=== PATIENT | male | born 1960 | race Caucasian/White ===

== ENCOUNTER 2022-06-17 14:34 | Emergency (ER) | payer OTHER ==
[~2022-06-17] VITALS: Ht 182.9 cm; Wt 90.7 kg
--- NOTE | 2022-06-17 15:00 | NUR ---
Sleeping soundly. Respirations even and unlabored
--- NOTE | 2022-06-17 18:00 | NUR ---
Status quo. NO obvious distress
--- NOTE | 2022-06-17 19:44 | NUR ---
PT IS SLEEPING, DROWSY WHEN AWAKEN. CONNECTED TO MONITOR. SAFETY PRECAUTIONS IN PLACE. SITTER WITHIN SIGHT. WILL CONTINUE TO MONITOR.
--- NOTE | 2022-06-18 07:53 | NUR ---
breakfast provided to patient. awake and alert.
[2022-06-18 08:12] VITALS: BP 129/61
--- NOTE | 2022-06-18 08:12 | NUR ---
Patient given written and verbal discharge instructions. Patient verbalizes understanding of instructions. Patient is ambulatory with steady gait. Refuses offer of jail placement. Patient given list of available shelters in surrounding area.
[2022-06-19] MEDS ORDERED: LURA80TA PO (02:53)
[2022-06-19] MEDS ORDERED: LORA-259 PO (02:53)
[2022-06-19] MEDS ORDERED: ACET-73 PO (02:53)
[2022-06-19] MEDS ORDERED: FLUV100T3 PO (02:53)
[2022-06-19] MEDS ORDERED: ZOLP5TAB8 PO (02:53)
[2022-06-19] MEDS ORDERED: SITA100T PO (02:53)
[2022-06-19] MEDS ORDERED: TRAM50TA2 PO (03:02)
[2022-06-19] MEDS ORDERED: LOVA20TA2 PO (03:02)
[2022-06-19] MEDS ORDERED: CARI350T27 PO (03:02)
[2022-06-19] MEDS ORDERED: METF-442 PO (03:02)
[2022-06-21] MEDS ORDERED: THIA100T70 PO (17:53)
[2022-06-21] MEDS ORDERED: ASPI-1169 PO (17:53)
[2022-06-21] MEDS ORDERED: AMLO-213 PO (17:53)
== END 2022-06-18 08:12 | disposition home or self-care (01) ==
LOC: ER 18:50 → EDBD 18:50 → ER 06-18 08:12
DX: F10.129 Alcohol abuse with intoxication, unspecified (principal); Z59.00 Homelessness unspecified; Y90.9 Presence of alcohol in blood, level not specified

== ENCOUNTER 2022-06-18 17:45 | Inpatient (IN) | payer OTHER ==
[~2022-06-18] VITALS: Ht 188 cm; Wt 87.5 kg
[2022-06-18] MEDS ORDERED: THIAMINE HCL 100 MG TABLET ONE (20:00)
[2022-06-18] MEDS ORDERED: THIAMINE HCL 100 MG TABLET PO ONE (20:00)
[2022-06-18 20:15] LABS: BASOPHILS % (AUTO) 0.2 % (0.0-2.0); EOSINOPHILS % (AUTO) 0.3 % (0.0-6.0); HEMATOCRIT 41 % (39-51); HEMOGLOBIN 14.6 g/dL (13.5-17.5); LYMPHOCYTES # (AUTO) 1.3 K/uL (0.8-4.8); LYMPHOCYTES % (AUTO) 12.7 % (20.0-44.0); MEAN CORPUSCULAR HGB CONC 36 g/dl (31.0-36.0); MEAN CORPUSCULAR VOLUME 86 fL (80-96); MONOCYTES # (AUTO) 1.2 K/uL (0.1-1.30); MONOCYTES % (AUTO) 12.3 % (2.0-12.0); NEUTROPHILS # (AUTO) 7.4 K/uL (1.8-8.9); NEUTROPHILS % (AUTO) 74.5 % (43.0-81.0); PLATELET COUNT (AUTO) 144 K/uL (150-450); RED BLOOD CELL COUNT(AUTO) 4.77 MIL/uL (4.5-6.0); WHITE BLOOD COUNT (AUTO) 9.9 K/uL (4.3-11.0)
[2022-06-18 20:24] LABS: CALCIUM, SERUM 8.6 mg/dL (8.5-10.1)
[2022-06-18 20:25] LABS: ALCOHOL, BLOOD < 3 mg/dL (0-0)
--- NOTE | 2022-06-18 20:27 | NUR ---
2.3 POTASSIUM, MD AWARE
[2022-06-18 20:30] LABS: ALBUMIN 3.2 g/dL (3.4-5.0); BILIRUBIN,DIRECT 0.3 mg/dL (0.0-0.2); TOTAL PROTEIN, SERUM 6.2 g/dL (6.4-8.2)
[2022-06-18 20:31] LABS: POTASSIUM 2.3 mmol/L (3.5-5.1)
[2022-06-18] MEDS ORDERED: POTASSIUM CHLORIDE 20 MEQ TAB.PRT.SR PO ONE ×2 (21:00)
[2022-06-18] MEDS ORDERED: POTASSIUM CL. PREMIX PERIPHER. 50 ML ONE ×3 (21:00→23:17)
[2022-06-18] MEDS: POTASSIUM CL. PREMIX PERIPHER. 50 ML IV SCH ×3 (21:20→23:31)
--- NOTE | 2022-06-18 21:22 | NUR ---
IV LINE ESTABLISHED, RAC20G
[2022-06-18] MEDS ORDERED: Z GUARD REMEDY 4 OZ OINT TP PRN (22:00)
[2022-06-18] MEDS ORDERED: ZOLPIDEM TARTRATE 5 MG TABLET PO PRN (22:00)
[2022-06-18] MEDS ORDERED: MAG HYDROX/AL HYDROX/SIMETH 30 ML UDC PO PRN (22:00)
[2022-06-18] MEDS ORDERED: ACETAMINOPHEN 325 MG TABLET PO PRN (22:00)
[2022-06-18] MEDS ORDERED: MAGNESIUM HYDROXIDE 30 ML UDC PO PRN (22:00)
[2022-06-18] MEDS ORDERED: ONDANSETRON HCL/PF 4 MG/2 ML VIAL IVP PRN (22:00)
--- NOTE | 2022-06-18 22:23 | NUR ---
PT IS SLEEPING , EASILY AROUSABLE WITH VERBAL STIMULI. CONNECTED TO MONITOR. WILL CONTINUE TO MONITOR.
[2022-06-18] MEDS ORDERED: Thiamine 100 MG/ML VIAL ONE (23:17)
[2022-06-18] MEDS: Thiamine 100 MG in IV D5W 50 ML IV SCH (23:30)
[2022-06-19] VITALS (8 sets, daily range): BP systolic 140–164; BP diastolic 71–92
[2022-06-19] MEDS ORDERED: POTASSIUM CL. PREMIX PERIPHER. 50 ML ONE (00:25)
[2022-06-19] MEDS: POTASSIUM CL. PREMIX PERIPHER. 50 ML IV SCH (00:36)
--- NOTE | 2022-06-19 01:45 | NUR ---
REPORT GIVEN TO AWA RIOS FOR MANUEL
--- NOTE | 2022-06-19 02:08 | NUR ---
patient transferred to [facility] via acls.
[2022-06-19] MEDS ORDERED: IV PREMIX NS +20MEQ KCL 1 L IV ONE (02:30)
[2022-06-19] MEDS: Potassium Chloride 20 MEQ in IV NS 0.9% 1,000 ML IV PRN ×2 (02:50→13:30)
[2022-06-19] MEDS ORDERED: SITA100T PO (02:53)
[2022-06-19] MEDS ORDERED: LURA80TA PO (02:53)
[2022-06-19] MEDS ORDERED: FLUV100T3 PO (02:53)
[2022-06-19] MEDS ORDERED: ACET-73 PO (02:53)
[2022-06-19] MEDS ORDERED: ZOLP5TAB8 PO (02:53)
[2022-06-19] MEDS ORDERED: LORA-259 PO (02:53)
[2022-06-19] MEDS ORDERED: METF-442 PO (03:02)
[2022-06-19] MEDS ORDERED: TRAM50TA2 PO (03:02)
[2022-06-19] MEDS ORDERED: LOVA20TA2 PO (03:02)
[2022-06-19] MEDS ORDERED: CARI350T27 PO (03:02)
--- NOTE | 2022-06-19 04:32 | NUR ---
CARPENTER LABOR SUPERVISOR NOTE PATIENT TRANSFERRED IN UNIT AT 0157 AM, ACCOMPANIED BY 1 ER PERSONNEL, JAMES FERNÁNDEZ. PATIENT IS VERY LETHARGIC AND SOMNOLENT. NO PUPIL REACTION NOTED BUT CORNEAL REFLEXES THERE. A/OX2, TO NAME AND PLACE. UNABLE TO DO A THOROUGH QUESTIONING D/T PATIENT CONDITION AT THIS TIME. NO S/S OF APPARENT DISTRESS ON ROOM AIR. NO C/O PAIN. PATIENT JUST WANTS WARM BLANKETS. IV ACCESS ON R. AC #20 G-- NOW RUNNING NS WITH 20MEQ KCL @100MLS/HR. NEW ID BAND ON PATIENT. BELONGINGS CHECKED, AND CONTRABAND CONFISCATED-- INCLUDING 1 PACK OF CIGARETTE, SCISSOR, AND SOME VIAL WITH UNKNOWN SUBSTANCE THAT TO WHAT IT LOOKS LIKE CRUSHED PILLS. PATIENT BAG FULL OF MEDICATIONS THAT ALREADY BEEN RECONCILED BY CHARGE NURSE AWA. MULTIPLE SKIN ISSUES NOTED, PICTURES TAKEN AND WOUND CARE CONSULT ORDERED. TELE MONITOR READING SR WITH PAC'S WITH 78 BPM. NEEDS ATTENDED FOR NOW. SAFETY IN PLACE-- X4 RAILS PADDED, IN LOCKED AND LOWEST POSITION, BED ALARM ON. WILL MONITOR FOR NOW AND FOLLOW THROUGH DOCTOR'S ORDERS.
--- NOTE | 2022-06-19 06:39 | NUR ---
SYSTEM INTEGRATION ENGINEER CLOSING PATIENT IN BED WITH EYES CLOSED, EASY TO AROUSE. NO S/S OF APPARENT DISTRESS IN ROOM AIR. NO C/O PAIN AT THIS TIME. TELE MONITOR READING SR WITH 70 BPM. IV NS WITH 20 MEQ KCL RUNNING @100 MLS/HR. SAFETY IN PLACE. WILL ENDORSE TO MORNING SHIFT RN FOR CONTINUITY OF PATIENT CARE.
--- NOTE | 2022-06-19 07:48 | NUR ---
MULTIMEDIA JOURNALIST OPENING NOTES: RECEIVED POATIENT IN BED, AWAKE. EASILY AROUSED WITH STIMULI. NO SOB OR CARDIAC DISTRESS NOTED. ON TERRAZZO GRINDER WITH CURRENT READING SR 74 BPM. IV NS WITH 20 MEQ KCL RUNNING @100 MLS/HR. SAFETY MEASURES MAINTAINED: BED LOCKED AND IN LOWEST POSITION, SIDE RAILS UP X 3, CALL LIGHT IN EASY REACH FOR ASSISTANCE. KEPT RESTED, CLEAN, DRY AND COMFORTABLE.
[2022-06-19 08:21] LABS: BASOPHILS % (AUTO) 0.3 % (0.0-2.0); EOSINOPHILS % (AUTO) 0.6 % (0.0-6.0); HEMATOCRIT 40 % (39-51); LYMPHOCYTES # (AUTO) 0.9 K/uL (0.8-4.8); LYMPHOCYTES % (AUTO) 12.9 % (20.0-44.0); MEAN CORPUSCULAR HGB CONC 35 g/dl (31.0-36.0); MEAN CORPUSCULAR VOLUME 87 fL (80-96); MONOCYTES # (AUTO) 0.9 K/uL (0.1-1.30); MONOCYTES % (AUTO) 13.4 % (2.0-12.0); NEUTROPHILS # (AUTO) 5.1 K/uL (1.8-8.9); NEUTROPHILS % (AUTO) 72.8 % (43.0-81.0); PLATELET COUNT (AUTO) 152 K/uL (150-450); RED BLOOD CELL COUNT(AUTO) 4.62 MIL/uL (4.5-6.0); WHITE BLOOD COUNT (AUTO) 7.1 K/uL (4.3-11.0)
[2022-06-19 08:41] LABS: BILIRUBIN,TOTAL 1.1 mg/dL (0.2-1.0); CALCIUM, SERUM 7.9 mg/dL (8.5-10.1); CREATININE 0.8 mg/dL (0.6-1.3); MAGNESIUM 1.8 mg/dL (1.8-2.4); PHOSPHORUS 3.1 mg/dL (2.5-4.9)
[2022-06-19] MEDS: ASPIRIN 81 MG TAB.CHEW PO SCH (08:46)
[2022-06-19 08:53] LABS: POTASSIUM 2.7 mmol/L (3.5-5.1)
--- NOTE | 2022-06-19 08:53 | NUR ---
RN NOTES: RECEIVED A CALL FROM LABORATORY, POTASSIUM LEVEL 2.7. . DR WOMACK MADE AWARE.
--- NOTE | 2022-06-19 09:16 | NUR ---
SS consult requested over the weekend for ETOH Abuse. SW will follow up at a later time.
--- NOTE | 2022-06-19 09:20 | NUR ---
WOUND CARE CONSULT: PT PRESENTS WITH AREAS OF REDNESS AND DISCOLORATION ON BODY WITH VERY RED RASH TO BUTTOCKS, PRESENT ON ADMISSION. RECOMMENDATIONS MADE FOR SKIN PROTECTION. DISCUSSED WITH NURSING STAFF. MD IN AGREEMENT WITH PLAN OF CARE.
--- NOTE | 2022-06-19 09:21 | NUR ---
RN NOTES: SEEN AND EXAMINED BY SHITAL WOUND CARE NURSE. PT'S BUTTOCKS, NOTED WITH REDNESS APPLIED Z GUARD.
--- NOTE | 2022-06-19 10:08 | NUR ---
RN NOTES: Seen and examined by Dr Landa, with new orders made: 2.7 potassium level relayed to MD, ordered KCl 80mEq PO, MRI of the brain and Dr Colon for consult. Orders noted and carried out.
[2022-06-19] MEDS ORDERED: POTASSIUM CHLORIDE 20 MEQ TAB.PRT.SR PO ONE (11:00)
--- NOTE | 2022-06-19 17:13 | NUR ---
RN NOTES; PATIENT CAME BACK FROM MRI OF THE BRAIN. STABLE.
[2022-06-19] MEDS: CLOTRIMAZOLE 1% 15 GM TUBE TP SCH (17:15)
--- NOTE | 2022-06-19 19:04 | NUR ---
JUNIOR BUSINESS ANALYST CLOSING NOTES: PATIENT IN BED AWAKE AND WATCHING TELEVISION AT THIS TIME, ALERT AND ORIENTED X 3 AND ABLE TO VERBALIZED NEEDS, NO SOB OR CARDIAC DISTRESS NOTED. PATIENT HAS NO EPISODES OF ALCOHOL WITHDRAWAL,PATIENT REMAINED PLEASANT.IV ACCESS ON RIGHT AC GAUGE 20 PATENT AND INTACT AND INFUSING NS WITH 20 20MEQ 1L X 100ML/HOUR. ON EGG TESTER WITH CURRENT READING OF SR 68 BPM. SAFETY PRECAUTIONS MAINTAINED: BED LOCKED AND IN LOWEST POSITION, SIDE RAILS UP X 2. CALL LIGHT IN EASY REACH FOR HELP OR ASSISTANCE. ENDORSED TO LABORER GOLF COURSE FOR CONTINUITY OF CARE.
--- NOTE | 2022-06-19 19:28 | NUR ---
STAFF PHARMACIST HOSPITAL OPENING NOTES: PATIENT IN BED AWAKE AND WATCHING TELEVISION AT THIS TIME, ALERT AND ORIENTED X 3 AND ABLE TO VERBALIZED NEEDS, NO SOB OR CARDIAC DISTRESS NOTED.IV ACCESS ON RIGHT AC GAUGE 20 PATENT AND INTACT AND INFUSING NS WITH 20 20MEQ 1L X 100ML/HOUR. ON PATIENT OBSERVATION ASSISTANT WITH CURRENT READING OF SR 68 BPM. SAFETY PRECAUTIONS MAINTAINED: BED LOCKED AND IN LOWEST POSITION, SIDE RAILS UP X 2. CALL LIGHT IN EASY REACH FOR HELP OR ASSISTANCE. WILL CONTINUE TO MONITOR.
[2022-06-19] MEDS ORDERED: CLONIDINE HCL 0.1 MG TABLET PO ONE (22:30)
--- NOTE | 2022-06-19 22:30 | NUR ---
RN NOTES PT NOTED WITH SBP > 160 GLUE MAKER NOTIFIED RECEIVED NEW ORDER FOR CLONIDINE 0.1MG P.O X1 CARRIED OUT PT TOLERATED WELL..
[2022-06-19] MEDS: Thiamine 100 MG in IV D5W 50 ML IV SCH (22:35)
[2022-06-20] VITALS: BP 140/76
[2022-06-20 04:00] VITALS: BP 141/79
--- NOTE | 2022-06-20 07:05 | NUR ---
TELE CLOSING NOTE PATIENT IN BED AWAKE AND WATCHING TELEVISION AT THIS TIME, ALERT AND ORIENTED X 2-3 AND ABLE TO VERBALIZED NEEDS, NO SOB OR CARDIAC DISTRESS NOTED.IV ACCESS ON RIGHT AC GAUGE 20 PATENT AND INTACT AND INFUSING NS WITH 20 20MEQ 1L X 100ML/HOUR. ON NEONATAL NURSE PRACTITIONER WITH CURRENT READING OF SR 68 BPM. SAFETY PRECAUTIONS MAINTAINED: BED LOCKED AND IN LOWEST POSITION, SIDE RAILS UP X 2. CALL LIGHT IN EASY REACH FOR HELP OR ASSISTANCE. WILL ENDORSE CARE.
--- NOTE | 2022-06-20 07:50 | NUR ---
PRISON TEACHER OPENING NOTE Patient in bed, asleep. A/O x 2-3. On room air, breathing evenly and unlabored. No SOB or s/s of distress noted. IV access on RAC #20 infusing Ns + 20 MEQ KCL at 100 ml/hr. On tele monitoring showing SR, HR 68. Safety precautions in place: bed in low, locked position; siderails up x 2; call light within reach. Will continue to monitor.
[2022-06-20 08:33] VITALS: BP 167/80
[2022-06-20] MEDS: ASPIRIN 81 MG TAB.CHEW PO SCH (08:46)
[2022-06-20] MEDS: THIAMINE HCL 100 MG TABLET PO SCH (08:46)
[2022-06-20] MEDS: CLOTRIMAZOLE 1% 15 GM TUBE TP SCH ×2 (08:56→17:07)
--- NOTE | 2022-06-20 09:30 | NUR ---
RN NOTE Patient's BP is 167/80, patient has no scheduled nor PRN BP medication. Dr. Ross Wilson notified.
[2022-06-20] MEDS: Potassium Chloride 20 MEQ in IV NS 0.9% 1,000 ML IV PRN ×2 (11:53→22:43)
[2022-06-20] MEDS ORDERED: LORAZEPAM 1 MG TABLET PO PRN (15:00)
[2022-06-20] MEDS: AMLODIPINE BESYLATE 10 MG TABLET PO SCH (15:25)
[2022-06-20 16:09] VITALS: BP 157/71
[2022-06-20] MEDS ORDERED: GADOTERATE MEGLUMINE 10 MMOL/20 ML VIAL IV ONE (16:10)
--- NOTE | 2022-06-20 19:35 | NUR ---
WILD ANIMAL CARETAKER CLOSING NOTE Patient in bed, resting. A/O x 2, able to make needs known. Stable on room air, breathing evenly and unlabored. No SOB or s/s of distress noted. IV access on RAC #20 infusing NS + 20 MEQ KCL at 100 ml/hr. All needs attended to. Due meds given. On tele monitoring showing SR, HR on the 60's. Safety precautions maintained: bed in low, locked position; siderails up x 2; call light within reach. Will endorse to hotel night auditor nurse for MANUEL.
[2022-06-20 20:00] VITALS: BP 141/75
[2022-06-20 21:02] VITALS: BP 141/75
--- NOTE | 2022-06-20 22:46 | NUR ---
HEART RATE ABNORMAL Sinus genoveva HR 50's in the Tele monitor, episodes HR dropped to 45 and back up to 55 in seconds. Patient awake, no c/o any discomfort. Tolerating room air, Oxygen sat 97%. Afebrile, verbal A/O x3. Recent laboratory 06/19/22 Potassium level 2.7 No lab today. IVF NS + KCL 20meq infusing. Notified TOWNSHIP CLERK Rip with no new orders at this time.
[2022-06-20] MEDS: FLUVOXAMINE MALEATE 50 MG TABLET PO SCH (23:01)
[2022-06-21] VITALS: BP 153/69
[2022-06-21 00:11] VITALS: BP 153/69
[2022-06-21 04:00] VITALS: BP_SYST 152; BP_SYST 153; BP_DIAS 60; BP_DIAS 79
--- NOTE | 2022-06-21 07:00 | NUR ---
END OF SHIFT REPORT Patient in bed, A/O x3 Forgetful at times. No agitation, no anxiety. Sinus genoveva, Sinus rhythm HR 67. Oxygen sat in high 90's. Ambulate to the bathroom, denies sob. IVF infusing. Fall precaution maintained. No c/o pain. Plan for PT eval.
--- NOTE | 2022-06-21 07:50 | NUR ---
RN Opening Note Received report from RN, pt AOx4, pt able to express his own needs and concerns, needs attended to. Will continue to monitor throughout shift. Pts IV Intact with no signs of infiltration. All safety precautions taken, bed at lowest position, call light and table within reach.
[2022-06-21 08:00] VITALS: BP 149/67
[2022-06-21] MEDS: LINAGLIPTIN 5 MG TABLET PO SCH (08:09)
[2022-06-21] MEDS: ATORVASTATIN 10 MG TABLET PO SCH (08:09)
[2022-06-21] MEDS: ASPIRIN 81 MG TAB.CHEW PO SCH (08:09)
[2022-06-21] MEDS: THIAMINE HCL 100 MG TABLET PO SCH (08:09)
[2022-06-21] MEDS: AMLODIPINE BESYLATE 10 MG TABLET PO SCH (08:10)
[2022-06-21] MEDS: CLOTRIMAZOLE 1% 15 GM TUBE TP SCH ×2 (08:15→18:00)
--- NOTE | 2022-06-21 09:00 | NUR ---
XRay Refusal Pt refused Back X-Ray, states he is not having back pain. X-Ray tech at bedside
--- NOTE | 2022-06-21 09:40 | NUR ---
SS consult: SS Consult requested for homelessness & alcohol use. The pt. is a 62-year-old male patient who was admitted to [facility] due to Hypokalemia, & generalized weakness per EMR. Upon SS consult, the pt. is Alert & Oriented x 4 and makes good eye contact. The pt. appears disheveled with depressed mood & flat affect. Pt. denies SI/HI and denies current hallucinations. SW explored pt.s living situation. Patient states he is currently experiencing homelessness for about a week as he left the sober living he was staying at. SW explored pt.s mental health Hx. and pt. states he has been diagnosed with Schizophrenia in the past and is currently not on any medication. SW explored pt.s drug & ETOH use. Pt. denies any drug use and states he uses alcohol not to often. However, per EMR, the pt. has HX. of heavy alcohol intoxication. Pt. states he is able to ambulate but is very weak at times and could use some help with some ADLs. SW explored pt.s support system. Pt. states he has no support system. Pt. reports she receives SSI. Per Chio PARRA the PT is recommending SNF placement. Plan: SW provided pt. with addiction resources and pt. refused them. SW also provided pt. with homeless resources to detention, food martinez, showers etc. and pt. accepted resources. Pt. signed homeless waiver and it was placed in the pt.s chart. Pt. is agreeable to SNF placement at this time. Year-round shelters: [facility] [address] [place], [place] [phone] ; [facility] [address] [place] [address]; [facility] [id number] [facility]. [facility] [address] Hygiene: [facility]: [address] [place] ; [facility] [address] [facility] ; [facility] [address] . Food Resources: [facility]- [address] [place]; Meet Each Need with Dignity (MEND) [address] [facility]; [facility] [address] [facility]; [facility] [address] [facility]. Mental Health resources provided: [facility] [address] [place] [address] ; [facility] [address] [facility] [address], [place], [place] [id number] ; [facility] [address] [place] [phone] ; [facility] [address] [place], [place] [address] Healthcare Clinics: [facility] [address] [facility], [address] [place]. [place] ; [facility] [address] [facility] [address] [place] [address]; [facility] [address] [facility]. [place] [phone] Counseling--Outpatient [facility] [address] [facility], [address] [place], [place] [id number] (Specializes in in-depth psychotherapy for emotional distress: anxiety, depression, interpersonal conflicts, life transitions, childhood abuse) [facility] [address] [place], [place] [phone] (Assist with solving problem marital difficulties, separation & divorce, aging parents, & grief, chronic & terminal illness) [facility] [address] [place] [address] (Deal with loss & grief, anxiety, marital difficulties) Homebound/Mental Health Services [address] [facility], [address] [place], [place] [address] (Provide in-home mental services to people who are incapable of leaving their homes) [facility] of [facility] Elderly Senior Service/Resource Center [address] [place] [address] [facility] [address] [place] [address] PSYCHIATRIC OUTPATIENT SERVICES [facility] Partial Hospitalization and Intensive Outpatient Program (Managed Care and [place] Only)[address] [facility] [phone] [facility] Partial Hospitalization and Outpatient [address] [place], [place] [phone] [facility] Mental Health [place] [id number] [address] [place], [place] [phone] [facility] Partial Hospitalization and Outpatient [id number] [facility], [phone] Substance Abuse resources provided included: [facility] Substance Abuse Self-Helpline ([facility]) ; C[facility] -[facility]LP [address] [facility]. [place] [address] ; [facility] [address] [facility] [address] ; [facility] Rehabilitation Program [address] [address] [facility] [address] ; [facility] [address] [phone] ; [facility] [address] [facility] [address] ; [facility] [address] [facility] [address] ; [facility] Substance Abuse Helpline(SAS)-[facility] ; [facility] ; [place] [place]le [place]; [facility] Maybee; [facility] [place]; [facility]; [facility] [place]; [facility] [place]; [facility]; Alcoholics Anonymous -sfv; Nick ; Marijuana Anonymous -SFV; Narcotics Anonymous www.na.org;
[2022-06-21 13:55] LABS: CALCIUM, SERUM 8.2 mg/dL (8.5-10.1); CREATININE 0.8 mg/dL (0.6-1.3); MAGNESIUM 1.6 mg/dL (1.8-2.4); PHOSPHORUS 3.3 mg/dL (2.5-4.9)
[2022-06-21 14:12] LABS: POTASSIUM 2.8 mmol/L (3.5-5.1)
[2022-06-21] MEDS: POTASSIUM CHLORIDE 20 MEQ TAB.PRT.SR PO SCH ×2 (15:22→16:32)
[2022-06-21 16:30] VITALS: BP 136/67
[2022-06-21] MEDS ORDERED: THIA100T70 PO (17:53)
[2022-06-21] MEDS ORDERED: AMLO-213 PO (17:53)
[2022-06-21] MEDS ORDERED: ASPI-1169 PO (17:53)
--- NOTE | 2022-06-21 18:40 | NUR ---
RN Closing Note PT AO x4, no signs of distress, pt able to express his own concerns. Patient was accepted [facility], pending bed availability, patient agrees with plan to discharge to facility. Patient remained stable throughout shift, potassium replacement administered as ordered. No incidents throughout shift, all safety precautions taken.Provided care throughout shift and attended pts needs.
--- NOTE | 2022-06-21 19:00 | NUR ---
RN opening notes Received Pt sitting in bed comfortably. Pt is alert and orientedX4. On room air. NO SOB. No s/s of distress noted. Tele monitor showed SR hr at 88. IV site at L hand @22 is clean, intact and infuising well potassium chloride in Ns @ 100 ml/hr. Pt is able to ambulates with a steady gait. safety precautions is maintained. bed at low position, brakes locked, side rails upX2, hob elevated, and call light is within reach. will continue to monitor.
[2022-06-21 20:00] VITALS: BP 143/73
[2022-06-21] MEDS: FLUVOXAMINE MALEATE 50 MG TABLET PO SCH (21:15)
[2022-06-22] VITALS: BP 145/68
[2022-06-22 04:00] VITALS: BP 141/70
--- NOTE | 2022-06-22 06:30 | NUR ---
RN closing notes Pt is resting in bed comfortably. Pt is alert and orientedX4. On room air. NO SOB. No s/s of distress noted. Tele monitor showed S genoveva hr at 57. IV site at L hand @22 is clean, intact and SL. Vs is stable. Kept Pt clean, dry and comfortable. safety precautions is maintained. bed at low position, brakes locked, side rails upX2, hob elevated, and call light is within reach. Will endorse to am nurse for MANUEL.
--- NOTE | 2022-06-22 07:20 | NUR ---
ms rn received on bed, awake,alert,oriented x4,not in any form of distress, respirations even and unlabored,no sob noted, lungs are clear,abdomen soft,positive bowel sounds,denies pain at this time, all needs attended.
[2022-06-22 08:00] VITALS: BP 157/89
[2022-06-22] MEDS: THIAMINE HCL 100 MG TABLET PO SCH (09:06)
[2022-06-22] MEDS: ASPIRIN 81 MG TAB.CHEW PO SCH (09:06)
[2022-06-22] MEDS: AMLODIPINE BESYLATE 10 MG TABLET PO SCH (09:06)
[2022-06-22] MEDS: ATORVASTATIN 10 MG TABLET PO SCH (09:06)
[2022-06-22] MEDS: LINAGLIPTIN 5 MG TABLET PO SCH (09:06)
--- NOTE | 2022-06-22 09:08 | NUR ---
ms randall breakfast served,due meds given,tolerated well.
[2022-06-22] MEDS: CLOTRIMAZOLE 1% 15 GM TUBE TP SCH ×2 (09:12→17:29)
--- NOTE | 2022-06-22 18:20 | NUR ---
ms rn patient on bed, no distress noted, still on d/c planning at this time, will endorse to night monitor for edil.
--- NOTE | 2022-06-22 18:34 | NUR ---
RN CLOSING NOTE, PT IS AWAKE, A/O X4. NO SOB OR RESPIRATORY DISTRESS NOTED. STABLE ON RA O2 SAT AT 100%. TELE UNIT READING NORMAL SINUS RHYTHM AT 56 BPM. NO COMPLAINTS OF PAIN AT THIS TIME. IV LEFT HAND 20 G INTACT AND PATENT. SAFETY MEASURES IN PLACE: BED LOCKED, BED IN LOWEST POSITION, SIDE RAILS UP X2, CALL LIGHT WITHIN REACH. WILL ENDORSE TO REGULATOR ASSEMBLER NURSE FOR MANUEL.
--- NOTE | 2022-06-22 19:30 | NUR ---
RN NOTES RECEIVED PT IN BED, ASLEEP, AWAKENS TO VERBAL STIMULI. AOx4. ON RA AND TOLERATING WELL. NO DISTRESS NOTED. WILL CONTINUE PLAN OF CARE.
[2022-06-22 20:51] VITALS: BP 125/56
[2022-06-22] MEDS: Potassium Chloride 20 MEQ in IV NS 0.9% 1,000 ML IV PRN (22:26)
[2022-06-22] MEDS: FLUVOXAMINE MALEATE 50 MG TABLET PO SCH (22:26)
[2022-06-23 00:45] VITALS: BP 124/76
[2022-06-23 04:03] VITALS: BP 131/75
--- NOTE | 2022-06-23 06:52 | NUR ---
RN CLOSING NOTES PT IN BED, AWAKE, WATCHING TV. AOx4, ABLE TO MAKE NEEDS KNOWN. ON RA AND TOLERATING WELL. NO DISTRESS NOTED. ALL ORDERS CARRIED OUT. ALL NEEDS MET. PT KEPT CLEAN AND DRY. WILL ENDORSE TO ONCOMING SHIFT FOR MANUEL.
--- NOTE | 2022-06-23 07:05 | NUR ---
ms rn received on bed, awake,alert,oriented x4,not in any form of distress, respirations even and unlabored,no sob noted, lungs are clear,abdomen soft,positive bowel sounds,denies pain at this time,all needs attended.call light within reach.
[2022-06-23 08:19] VITALS: BP 152/56
--- NOTE | 2022-06-23 08:30 | NUR ---
ms randall breakfast served,due med given,tolerated well.
[2022-06-23] MEDS: LINAGLIPTIN 5 MG TABLET PO SCH (08:33)
[2022-06-23] MEDS: ASPIRIN 81 MG TAB.CHEW PO SCH (08:33)
[2022-06-23] MEDS: THIAMINE HCL 100 MG TABLET PO SCH (08:33)
[2022-06-23] MEDS: AMLODIPINE BESYLATE 10 MG TABLET PO SCH (08:33)
[2022-06-23] MEDS: ATORVASTATIN 10 MG TABLET PO SCH (08:33)
[2022-06-23] MEDS: CLOTRIMAZOLE 1% 15 GM TUBE TP SCH ×2 (09:00→17:54)
[2022-06-23 11:52] VITALS: BP 154/64
--- NOTE | 2022-06-23 12:30 | NUR ---
ms rn was seen by Evelyne salcedo/ kody made and carried out.
--- NOTE | 2022-06-23 15:41 | NUR ---
ms rn on bed, all needs attended.
[2022-06-23 15:59] VITALS: BP 147/68
[2022-06-23] MEDS ORDERED: GABAPENTIN 300 MG CAPSULE PO SCH (17:30)
--- NOTE | 2022-06-23 17:30 | NUR ---
ms contemporary or modern dancer came to talked w/ patient that he can go to care home now.
--- NOTE | 2022-06-23 18:00 | NUR ---
ms rn hedis instructions given and understood, due meds given,tolerated well. belongings/home meds given, patient discharged,all needs attended.
== END 2022-06-23 18:10 | disposition home or self-care (01) | DRG 425 ==
LOC: ER 17:49 → TRANSITION 21:43 → TELE 06-19 01:25
PROVIDERS: ADMIT Nurse Practitioner Acute Care; ATTEND Nurse Practitioner Acute Care
DX: E87.6 Hypokalemia (principal); G92.8 Other toxic encephalopathy; F10.139 Alcohol abuse with withdrawal, unspecified; Z59.00 Homelessness unspecified; Z20.822 Contact with and (suspected) exposure to COVID-19; Y90.0 Blood alcohol level of less than 20 mg/100 ml; G93.9 Disorder of brain, unspecified
CPT/HCPCS: 36415; 70450-TC; 70553-TC; 80048-TC; 80053-TC; 80076-TC; 82140-TC; 82550-TC; 82553; 83690-TC; 83735-TC; 84100-TC; 85025-TC; 85730-TC; 87081-TC; 97116-TC; 97530-TC; A4349; A9575; G0378; G0480; J2405; J3411; J3480; J3490; J7030; J7060

== ENCOUNTER 2022-06-24 11:36 | Inpatient (IN) | payer OTHER ==
[~2022-06-24] VITALS: Ht 182.9 cm; Wt 115.2 kg
[~2022-06-24 11:36] MED LIST: ACET-73 PO; AMLO-213 PO; ASPI-1169 PO; CARI350T27 PO; FLUV100T3 PO; LORA-259 PO; LOVA20TA2 PO; LURA80TA PO; METF-442 PO; SITA100T PO; THIA100T70 PO; TRAM50TA2 PO; ZOLP5TAB8 PO
--- NOTE | 2022-06-24 12:26 | NUR ---
pt triaged, c/o generalized weakness, nad, vss.
--- NOTE | 2022-06-24 17:20 | NUR ---
IV LINE ESTABLISHED ON LAC #18, BLOOD DRAWN AND SENT TO LAB
[2022-06-24] MEDS ORDERED: IV NS 0.9% 1,000 ML BAG IV ONE (17:30)
--- NOTE | 2022-06-24 17:35 | NUR ---
COVID SWAB COLLECTED AND SENT TO LAB.
[2022-06-24 17:56] LABS: BASOPHILS % (AUTO) 0.3 % (0.0-2.0); EOSINOPHILS % (AUTO) 0.5 % (0.0-6.0); HEMATOCRIT 39 % (39-51); HEMOGLOBIN 13.4 g/dL (13.5-17.5); LYMPHOCYTES # (AUTO) 1.4 K/uL (0.8-4.8); MEAN CORPUSCULAR HGB CONC 34 g/dl (31.0-36.0); MEAN CORPUSCULAR VOLUME 87 fL (80-96); MONOCYTES % (AUTO) 7.3 % (2.0-12.0); NEUTROPHILS # (AUTO) 11.6 K/uL (1.8-8.9); NEUTROPHILS % (AUTO) 81.9 % (43.0-81.0); PLATELET COUNT (AUTO) 273 K/uL (150-450); WHITE BLOOD COUNT (AUTO) 14.2 K/uL (4.3-11.0)
--- NOTE | 2022-06-24 18:10 | NUR ---
PT UNABLE TO PROVIDE URINE AT THIS TIME; URINAL PROVIDED AT BEDSIDE
--- NOTE | 2022-06-24 18:10 | NUR ---
TECH AT BEDSIDE FOR EKG
[2022-06-24 18:15] LABS: CALCIUM, SERUM 8.5 mg/dL (8.5-10.1); CARBON DIOXIDE 34 mmol/L (21-32); CHLORIDE 95 mmol/L (98-107); CREATININE 0.9 mg/dL (0.6-1.3); GLUCOSE 99 mg/dL (74-106); POTASSIUM 3.2 mmol/L (3.5-5.1); SERUM AMMONIA 12 umol/L (11-32); SODIUM SERUM 134 mmol/L (136-145); UREA NITROGEN, BLOOD 11 mg/dL (7-18)
[2022-06-24 18:21] LABS: ALANINE AMINOTRANSFERASE 34 U/L (12-78); ALBUMIN 3.3 g/dL (3.4-5.0); ALCOHOL, BLOOD < 3 mg/dL (0-0); ALKALINE PHOSPHATASE 66 U/L (46-116); ASPARTATE AMINOTRANSFERASE 23 U/L (15-37); BILIRUBIN,DIRECT 0.3 mg/dL (0.0-0.2); TOTAL PROTEIN, SERUM 6.1 g/dL (6.4-8.2)
[2022-06-24 18:29] LABS: THYROID STIMULATING HORMONE 0.917 uIU/mL (0.358-3.74)
--- NOTE | 2022-06-24 18:34 | NUR ---
PT BACK FROM RADIOLOGY
--- NOTE | 2022-06-24 19:04 | NUR ---
URINE SAMPLE COLLECTED AND SENT TO LAB
--- NOTE | 2022-06-24 19:50 | NUR ---
RECEIVED PT IN BED 11. PT IS RESTING COMFORTABLY IN BED. PT IS ALERT AND ORIENTED. DENIES ANY PAIN AT THIS TIME. CONNECTED TO MONITOR. PROVIDED FOOD AND DRINK. WILL CONTINUE TO MONITOR
[2022-06-24 19:56] LABS: BILIRUBIN,URINE NEGATIVE (NEGATIVE); COLOR,URINE YELLOW (YELLOW); LEUKOCYTE ESTERASE ,URINE NEGATIVE (NEGATIVE); NITRITE, URINE NEGATIVE (NEGATIVE); PROTEIN,URINE NEGATIVE (NEGATIVE); UGLUCOSE NEGATIVE (NEGATIVE); UROBILINOGEN,URINE 0.2 EU/dL (0.2)
[2022-06-24 20:09] LABS: BACTERIA,URINE None seen /HPF (None Seen); RBC,URINE 0-2 /HPF (0-2); SQUAMOUS EPITHELIAL CELL,UR Few /HPF (None Seen); WBC,URINE 0-2 /HPF (0-3)
--- NOTE | 2022-06-24 22:10 | NUR ---
CALLED GEOLOGIST PETROLEUM MULTIPLE TIMES BUT NO ANSWER WILL CALL AGAIN.
--- NOTE | 2022-06-24 22:36 | NUR ---
PT IS ASLEEP, EASILY AROUSABLE WITH VERBAL STIMULI. WILL CONTINUE TO MONITOR.
[2022-06-24] MEDS ORDERED: POTASSIUM CHLORIDE 20 MEQ TAB.PRT.SR PO ONE ×2 (23:13→23:30)
[2022-06-24] MEDS ORDERED: POTASSIUM CHLORIDE 10 MEQ TABLET.SA ONE (23:13)
--- NOTE | 2022-06-25 | NUR ---
SPOKE WITH JIE SOLID WASTE LANDFILL TECHNICIAN UNABLE TO GIVE ANY TRANSFER NOR STAY AUTHORIZATION.
--- NOTE | 2022-06-25 | NUR ---
Farrukh ramos in [facility] - 06/25/22 at 0002 by JSARMMURPHY SPOKE WITH JIE RECORDS TECH UNABLE TO GIVE ANY TRANSFER NOT STAY AUTHORIZATION.
--- NOTE | 2022-06-25 00:28 | NUR ---
PT SLEEPING COMFORTABLY BREATHING EVEN AND UNLABORED. ALL NEEDS MET.
[2022-06-25] MEDS ORDERED: MAGNESIUM HYDROXIDE 30 ML UDC PO PRN (02:30)
[2022-06-25] MEDS ORDERED: TEMAZEPAM 15 MG CAPSULE PO PRN (02:30)
[2022-06-25] MEDS ORDERED: MAG HYDROX/AL HYDROX/SIMETH 30 ML UDC PO PRN (02:30)
[2022-06-25] MEDS ORDERED: ACETAMINOPHEN 325 MG TABLET PO PRN (02:30)
[2022-06-25] MEDS ORDERED: ONDANSETRON HCL/PF 4 MG/2 ML VIAL IVP PRN (02:30)
[2022-06-25] MEDS ORDERED: HYDROCODONE/APAP 5/325MG TABLET PO PRN (02:30)
[2022-06-25] MEDS ORDERED: Z GUARD REMEDY 4 OZ OINT TP PRN (02:30)
[2022-06-25] MEDS ORDERED: HYDROCODONE/APAP 10/325MG TABLET PO PRN (02:30)
--- NOTE | 2022-06-25 08:00 | NUR ---
BREAKFAST TRAY PROVIDED TO PTAVIS
[2022-06-25] MEDS ORDERED: PANTOPRAZOLE 40 MG TABLET.DR PO ONE (08:18)
[2022-06-25] MEDS: PANTOPRAZOLE 40 MG TABLET.DR PO SCH (08:24)
[2022-06-25] MEDS ORDERED: LORAZEPAM 1 MG TABLET PO PRN (12:00)
[2022-06-25] MEDS ORDERED: Magnesium 1GM/D5W 100ML PREMIX 100 ML IV SCH (12:00)
[2022-06-25] MEDS ORDERED: ACETAMINOPHEN ES 500 MG TABLET PO PRN (12:00)
[2022-06-25] MEDS ORDERED: Magnesium 1GM/D5W 100ML PREMIX 100 ML IV ONE (12:24)
[2022-06-25] MEDS ORDERED: TRAMADOL HCL 50 MG TABLET PO PRN (13:00)
[2022-06-25] MEDS: CEFTRIAXONE 1 G in IV D5W 50 ML IV SCH (13:40)
[2022-06-25] MEDS: Potassium Chloride 20 MEQ in IV NS 0.9% 1,000 ML IV SCH (13:57)
--- NOTE | 2022-06-25 15:06 | NUR ---
GOT BED 315-2.
--- NOTE | 2022-06-25 15:50 | NUR ---
TRANSFERRED TO BED 315 IN STABLE CONDITION
--- NOTE | 2022-06-25 16:00 | NUR ---
MS SPECIALIST FIELD ENGINEER NOTES: RECEIVED PT FROM ER STAFF. A/O X3, ABLE TO MAKE NEEDS KNOWN. ON RA, NO S/S OF SOB OR ACUTE DISTRESS AT THE MOMENT. IV ACCESS AT L AC# 18, PATENT AND INTACT. VS: BP-126/60; HR-77, TEMP- 98.0, O2 SAT- 97%. SKIN ASSESSED, WOUNDS PHOTOGRAPHED, DRESSED AND CLEANED. PT ORIENTED TO UNIT AND AND STAFF. SAFETY MEASURES IN PLACE, TABLE AND CALL LIGHT WITHIN REACH, WILL CONT TO MONITOR.
[2022-06-25] MEDS: METFORMIN 500 MG TABLET PO SCH (17:41)
--- NOTE | 2022-06-25 20:20 | NUR ---
MS RN OPENING NOTES RECEIVED PATIENT AWAKE IN BED, A/O X4, ABLE TO MAKE NEED KNOWN, ON RA TOLERATING WELL, NO COMPLAINTS OF PAIN AT THIS TIME, NO S/SX OF RESPIRATORY DISTRESS. WITH IV ACCESS ON LAC #18 CURRENTLY RUNNING KCL AT 100 ML/HR. PT IS AMBULATORY WITH ASSIST, REINFORCED TO CALL FOR ASSISTANCE WHEN NEEDED. BED IN LOWEST AND LOCKED POSITION, CALL LIGHT WITHIN REACH, WILL CONTINUE TO MONITOR.
[2022-06-25 20:39] VITALS: BP 121/64
--- NOTE | 2022-06-25 21:00 | NUR ---
MS RN CLOSING NOTES: PATIENT AWAKE IN BED, A/O X4, ABLE TO MAKE NEED KNOWN, ON RA TOLERATING WELL, NO COMPLAINTS OF PAIN AT THIS TIME, NO S/SX OF RESPIRATORY DISTRESS. WITH IV ACCESS ON LAC #18 CURRENTLY RUNNING KCL AT 100 ML/HR. PT IS AMBULATORY WITH ASSIST, REINFORCED TO CALL FOR ASSISTANCE WHEN NEEDED. BED IN LOWEST AND LOCKED POSITION, CALL LIGHT WITHIN REACH, ENDORSED TO PM SHIFT
[2022-06-25] MEDS ORDERED: ZOLPIDEM TARTRATE 5 MG TABLET PO PRN (22:00)
[2022-06-25 23:00] VITALS: BP 121/64
[2022-06-26] MEDS ORDERED: IV PREMIX NS +20MEQ KCL 1 L IV ONE (01:06)
[2022-06-26] MEDS: Potassium Chloride 20 MEQ in IV NS 0.9% 1,000 ML IV SCH ×3 (01:13→21:41)
--- NOTE | 2022-06-26 06:55 | NUR ---
MS RN CLOSING NOTES PATIENT REMAINS IN BED, A/O X4, ABLE TO MAKE NEED KNOWN, ON RA TOLERATING WELL, NO COMPLAINTS OF PAIN AT THIS TIME, NO S/SX OF RESPIRATORY DISTRESS. WITH IV ACCESS ON LAC #18 CURRENTLY RUNNING KCL AT 100 ML/HR. PT IS AMBULATORY WITH ASSIST, REINFORCED TO CALL FOR ASSISTANCE WHEN NEEDED. ALL DUE MEDS GIVEN, BED IN LOWEST AND LOCKED POSITION, CALL LIGHT WITHIN REACH, WILL ENDORSE TO AM SHIFT NURSE.
[2022-06-26 07:00] LABS: BASOPHILS % (AUTO) 0.3 % (0.0-2.0); EOSINOPHILS % (AUTO) 0.8 % (0.0-6.0); HEMATOCRIT 36 % (39-51); HEMOGLOBIN 12.4 g/dL (13.5-17.5); LYMPHOCYTES # (AUTO) 1.1 K/uL (0.8-4.8); LYMPHOCYTES % (AUTO) 14.6 % (20.0-44.0); MEAN CORPUSCULAR HGB CONC 35 g/dl (31.0-36.0); MEAN CORPUSCULAR VOLUME 87 fL (80-96); MONOCYTES # (AUTO) 0.6 K/uL (0.1-1.30); MONOCYTES % (AUTO) 8.6 % (2.0-12.0); NEUTROPHILS # (AUTO) 5.6 K/uL (1.8-8.9); NEUTROPHILS % (AUTO) 75.7 % (43.0-81.0); PLATELET COUNT (AUTO) 293 K/uL (150-450); WHITE BLOOD COUNT (AUTO) 7.4 K/uL (4.3-11.0)
[2022-06-26 07:23] LABS: CALCIUM, SERUM 8.1 mg/dL (8.5-10.1); CREATININE 0.8 mg/dL (0.6-1.3); POTASSIUM 3.8 mmol/L (3.5-5.1)
--- NOTE | 2022-06-26 07:30 | NUR ---
RN Opening Notes PT AOx3, able to express his own concerns. Introduced myself to patient and made him aware of call light, to use when he needs to get up or ambulate to the bathroom. Patient states understanding. Patient made aware of Plan of care. All safety precautions taken, call light and table within reach and bed at lowest position. Will continue to monitor and administer medications throughout shift.
--- NOTE | 2022-06-26 07:37 | NUR ---
WOUND CARE CONSULT: PT PRESENTS WITH DRY ABRASIONS TO UPPER EXTREMITIES, RASH TO RT BUTTOCK WITH FIRM, TENDER AREA AND OPENING TO GLUTEAL CREASE WHICH MAY REPRESENT SACRAL DIMPLE. TENDERNESS NOTED TO GLUTEAL CREASE AREA AND LEFT BUTTOCK. RECOMMEND SURGICAL CONSULT. DR GALDAMEZ TO BE CALLED THIS AM FOR CONSULT REQUEST. RECOMMENDATIONS MADE FOR SKIN PROTECTION. DISCUSSED WITH NURSING STAFF.
[2022-06-26 08:00] VITALS: BP 154/81
[2022-06-26] MEDS: METFORMIN 500 MG TABLET PO SCH ×2 (08:45→17:00)
[2022-06-26] MEDS: THIAMINE HCL 100 MG TABLET PO SCH (08:45)
[2022-06-26] MEDS: AMLODIPINE BESYLATE 10 MG TABLET PO SCH (08:45)
[2022-06-26] MEDS: FLUVOXAMINE MALEATE 50 MG TABLET PO SCH (08:45)
[2022-06-26] MEDS: LINAGLIPTIN 5 MG TABLET PO SCH (08:45)
[2022-06-26] MEDS: ASPIRIN 81 MG TAB.CHEW PO SCH (08:45)
[2022-06-26] MEDS: ATORVASTATIN 10 MG TABLET PO SCH (08:46)
[2022-06-26] MEDS: PANTOPRAZOLE 40 MG TABLET.DR PO SCH (08:47)
--- NOTE | 2022-06-26 11:40 | NUR ---
SS consult requested over the weekend for homelessness. SW will follow up at a later time.
[2022-06-26] MEDS: CEFTRIAXONE 1 G in IV D5W 50 ML IV SCH (13:17)
[2022-06-26 16:00] VITALS: BP 134/75
--- NOTE | 2022-06-26 19:37 | NUR ---
RN Closing Notes Patient AOx2-3, confused at times patient does not want to use urinal and prefers to walk to bathroom, educated pt on importance of calling for assistance since balance is not steady. Patient remained safe throughout shift, has a backpack with belongings refuses to put to the side and states he does not want the staff supervising him while he is looking through his belongings. Administered fluids and medication as scheduled, provided care as needed. Patient remained safe throughout shift, call light and table within reach. Bed at lowest position.
--- NOTE | 2022-06-26 19:43 | NUR ---
RN OPENING NOTES RECEIVED PT IN BED, AWAKE, LAYING IN BED, WATCHING TV. AOx4, ABLE TO MAKE NEEDS KNOWN. ON RA AND TOLERATING WELL. NO SOB NOTED. NO S/SX OF RESPIRATORY DISTRESS NOTED. IV ACCESS IN LEFT ARM #20G RUNNING NS WITH 20 mEQ POTASSIUM CHLORIDE @100 ML/HR. SAFETY PRECAUTIONS IN PLACE: BED IN LOWEST, LOCKED POSITION, SIDERAILS UPx2, AND BRAKES ON. TABLE AND CALL LIGHT WITHIN REACH. WILL CONTINUE PLAN OF CARE.
[2022-06-26 20:00] VITALS: BP 132/66
[2022-06-27] MEDS: Potassium Chloride 20 MEQ in IV NS 0.9% 1,000 ML IV SCH ×2 (05:09→15:44)
--- NOTE | 2022-06-27 07:26 | NUR ---
RN CLOSING NOTES PT LAYING IN BED, AWAKE, WATCHING TV. AOx4, ABLE TO MAKE NEEDS KNOWN. ON RA AND TOLERATING WELL. NO SOB NOTED. NO S/SX OF RESPIRATORY DISTRESS NOTED. IV ACCESS IN LEFT ARM #20G RUNNING NS WITH 20 mEQ POTASSIUM CHLORIDE @100 ML/HR. ALL ORDERS CARRIED OUT. ALL NEEDS MET. PT KEPT CLEAN AND DRY. SAFETY PRECAUTIONS IN PLACE: BED IN LOWEST, LOCKED POSITION, SIDERAILS UPx2, AND BRAKES ON. TABLE AND CALL LIGHT WITHIN REACH. WILL ENDORSE TO ONCOMING SHIFT FOR MANUEL.
--- NOTE | 2022-06-27 07:30 | NUR ---
RN Opening Notes PT AO x3, able to express his own needs, no signs of distress. fluids running as ordered, Right hand 20g., no signs of infiltration, no pain on site reported. Introduced myself, all safety precautions taken, call light and table within reach, bed at lowest position. Will continue to monitor throughout shift, administer medications as ordered, and provide care as needed.
[2022-06-27 08:00] VITALS: BP 157/86
[2022-06-27] MEDS: METFORMIN 500 MG TABLET PO SCH ×2 (08:24→17:00)
[2022-06-27] MEDS: ASPIRIN 81 MG TAB.CHEW PO SCH (08:24)
[2022-06-27] MEDS: PANTOPRAZOLE 40 MG TABLET.DR PO SCH (08:24)
[2022-06-27] MEDS: FLUVOXAMINE MALEATE 50 MG TABLET PO SCH (08:25)
[2022-06-27] MEDS: ATORVASTATIN 10 MG TABLET PO SCH (08:25)
[2022-06-27] MEDS: AMLODIPINE BESYLATE 10 MG TABLET PO SCH (08:25)
[2022-06-27] MEDS: LINAGLIPTIN 5 MG TABLET PO SCH (08:26)
[2022-06-27] MEDS: THIAMINE HCL 100 MG TABLET PO SCH (08:26)
--- NOTE | 2022-06-27 10:21 | NUR ---
SS consult: SS Consult requested for homelessness. The pt. is a 62 -year-old male patient who is admitted to [facility] due to Generalized weakness, leukocytosis per EMR. Upon SS consult, the pt. is Alert & Oriented x 4 and makes good eye contact. The pt. appears unkempt with euthymic mood & affect. Pt. denies SI/HI and denies hallucinations. SW explored pt.s living situation. Patient states he is currently experiencing homelessness and was last staying at a friends house but cannot return there. SW explored pt.s mental health Hx. and pt. states he has been diagnosed with Schizophrenia in the past and is not on any medications. SW explored pt.s drug & ETOH use. Pt. denies any drug use and states he drinks alcohol at times to help ease knee pain. Pt. states he is having difficulty ambulating and was falling on the street and patient states he is feeling weak. SW explored pt.s support system. Pt. states his he has no support system. Pt. reports he receives SSI. Plan: Per pt., he would like SNF placement it possible otherwise is agreeable to [facility] but states he cannot ambulate independently at this time. PT consult is pending. MARYCARMEN will discuss with CM. SW provided pt. with homeless resources to [facility], food martinez, showers etc. and pt. accepted them. Pt. signed homeless waiver and it was placed in the pt.s chart. Year-round shelters: [facility] [address] [place] [address] ; [facility] [address] [place] [address]; [facility] Jgjhzax2513 [facility]. [facility] [address] Hygiene: [facility]: [address]esh [address]ards[address] ; [facility] [address] [facility] ; [facility] [address] . Food Resources: [place] [facility] at [facility]- [address]. [place]; Meet Each Need with Dignity ([facility]) [address] Jorje [facility]; [facility] [address] [facility]; [facility] [address] [facility]. Mental Health resources provided: [facility] [address] [place], [place] [address] ; [facility] [address] [facility] [address], [place] [address] ; [facility] [address] [place], [place] [phone] ; [facility] [address] [place], [place] [address] Healthcare Clinics: [facility] [address] [facility], [address] [place]. [place] ; [facility] [address] [place] [address]; [facility] [address] [place] [address] [phone] Counseling--Outpatient [facility] [address] [facility], [place] [address] (Specializes in in-depth psychotherapy for emotional distress: anxiety, depression, interpersonal conflicts, life transitions, childhood abuse) [facility] [address] [place] [address] (Assist with solving problem marital difficulties, separation & divorce, aging parents, & grief, chronic & terminal illness) [facility] [address] [place] [address] (Deal with loss & grief, anxiety, marital difficulties) Homebound/Mental Health Services [address] [facility], [address] [place], [place] [id number] (Provide in-home mental services to people who are incapable of leaving their homes) [facility] Senior Service/Resource Center [address] [place] [address] [facility] [address] [facility] [place] [address] PSYCHIATRIC OUTPATIENT SERVICES [facility] Partial Hospitalization and Intensive Outpatient Program (Managed Care and [place] Only)[address] [facility] [phone] [facility] Partial Hospitalization and Outpatient [address] [place], [place] [phone] [facility] [place] Eas[address] [facility]. [address] [place], [place] [phone] [facility] Partial Hospitalization and Outpatient Wujcfio04871 [facility] [place], [phone] Substance Abuse resources provided included: [facility] Substance Abuse Self-Helpline ([facility]) ; [facility] [address] [facility]. [place] 9[address] ; [facility] [address] [facility] [address] ; [facility] [address] [facility] [address] ; [facility] [address] [address] ; [facility] [address] [facility] [address] ; [facility] [address] [facility] [phone] ; [facility] Substance Abuse Helpline([facility])-[facility] ; [facility] ; [facility]; [facility]; [facility] [place]; [facility] Kyrie Megjoe; [facility]; [facility]; [facility] Best; [facility], [facility]. Farhad May; Alcoholics Anonymous -[facility]; Nick ; Marijuana Anonymous -[facility]; Narcotics Anonymous www.[email or web address];
[2022-06-27] MEDS: CEFTRIAXONE 1 G in IV D5W 50 ML IV SCH (13:40)
[2022-06-27 18:05] VITALS: BP 128/70
--- NOTE | 2022-06-27 18:15 | NUR ---
Discharging Notes Patient AOx4, made aware of discharge plan. Patient will follow up with recuperative care on placement. Per medical device sales representative pt will be able to be admitted in a couple of days, pending [place] auth. Clinical Rehabilitation Specialist to send info and update patient and facility on acceptance status. Patient was given phone number and address of facility. Patient maintained safe throughout shift, all safety precautions taken, bed at lowest position, call light and table within reach. Administered medications and hydration as prescribed, provided care and assistance as needed. Patient discharged via wheelchair to hospital main entrance safely and was given a TAP/[employer] card. IV removed, catheter intact, pictures of admission wounds taken and filed in chart. Patient signed belonging sheet and verified all belongings given.
== END 2022-06-27 18:15 | disposition home or self-care (01) | DRG 775 ==
LOC: ER 11:38 → TRANSITION 06-25 02:14 → MED 06-25 15:09
PROVIDERS: ADMIT Nurse Practitioner Acute Care
DX: F10.139 Alcohol abuse with withdrawal, unspecified (principal); G92.8 Other toxic encephalopathy; D72.829 Elevated white blood cell count, unspecified; E87.6 Hypokalemia; Z59.00 Homelessness unspecified; Z20.822 Contact with and (suspected) exposure to COVID-19; Y90.0 Blood alcohol level of less than 20 mg/100 ml; Z91.81 History of falling; Z79.82 Long term (current) use of aspirin; Z79.84 Long term (current) use of oral hypoglycemic drugs; R29.6 Repeated falls; F41.9 Anxiety disorder, unspecified; R21 Rash and other nonspecific skin eruption; F17.200 Nicotine dependence, unspecified, uncomplicated
CPT/HCPCS: 36415; 70450-TC; 71045-TC; 72125-TC; 80048-TC; 80076-TC; 81001; 82140-TC; 83605-TC; 83735-TC; 84100-TC; 84425; 84443-TC; 84484-TC; 85025-TC; 85730-TC; 87040-TC; 87081-TC; 97116-TC; 97530-TC; A6403; C9803; G0378; G0480; J0696; J2405; J3475; J3480; J3490; J7030; J7050; J7060